=== PATIENT | female | born 1985 | race Caucasian/White ===

== ENCOUNTER 2020-06-08 02:30 | Inpatient (IN) | payer OTHER ==
[2020-06-08] MEDS ORDERED: Lidocaine 1% 50 ML MDV INJECT PRN (02:35)
[2020-06-08] MEDS ORDERED: Sodium Chloride 0.9% 2.5 ML Syringe FLUSH PRN (02:35)
[2020-06-08] MEDS ORDERED: Sodium Chloride 0.9% 10 ML SDV IV PRN (02:35)
[2020-06-08] MEDS ORDERED: Carboprost Tromethamine 250 MCG/1 ML Amp IM PRN (02:35)
[2020-06-08] MEDS ORDERED: Nalbuphine 10 MG/1 ML Vial IVPUSH PRN (02:35)
[2020-06-08] MEDS ORDERED: Butorphanol 1 MG/ML SDV IVPUSH PRN (02:35)
[2020-06-08] MEDS ORDERED: Misoprostol 200 MCG Tab PO PRN (02:35)
[2020-06-08] MEDS ORDERED: Water For Irrigation,Sterile 1,000 ML Container IRR PRN (02:35)
[2020-06-08] MEDS ORDERED: Sodium Chloride 0.9% 10 ML Syringe FLUSH PRN (02:35)
[2020-06-08] MEDS ORDERED: Methylergonovine 0.2 MG/1 ML Amp IM PRN (02:35)
[2020-06-08] MEDS ORDERED: Tranexamic Acid 1,000 MG in Sodium Chloride 0.9% 100 ML IV PRN (02:35)
[2020-06-08] MEDS ORDERED: Oxytocin/0.9 % Sodium Chloride 30 UNIT/500 ML BAG IV SCH (02:45)
[2020-06-08] MEDS: Lactated Ringers 1,000 ML IV SCH ×4 (03:17→06:34)
[2020-06-08] MEDS ORDERED: fentaNYL 100 MCG/2 ML SDV ONE (03:44)
[2020-06-08] MEDS ORDERED: Ropivacaine HCl/PF 100 ML ONE (03:45)
--- NOTE | 2020-06-08 04:14 | PCM.PREANE ---
Preanesthetic Assessment - Anesthesia/Transfusion/Family Hx Anesthesia History: Prior Anesthesia Without Reaction Family History of Anesthesia Reaction: No - Physical Assessment NPO Status Date: 06/08/20 NPO Status Time: 23:00 Height: 1.68 m Weight: 93.894 kg ASA Class: 2 - Lab Values: Laboratory Last Values WBC 13.93 K/uL (4.0-11.0) H 06/08/20 02:50 RBC 4.63 M/uL (4.30-5.90) 06/08/20 02:50 Hgb 12.3 g/dL (12.0-16.0) 06/08/20 02:50 Hct 37.8 % (36.0-46.0) 06/08/20 02:50 MCV 81.6 fL (80.0-98.0) 06/08/20 02:50 MCH 26.6 pg (27.0-32.0) L 06/08/20 02:50 MCHC 32.5 g/dL (31.0-37.0) 06/08/20 02:50 RDW Std Deviation 42.5 fl (28.0-62.0) 06/08/20 02:50 RDW Coeff of Talia 14 % (11.0-15.0) 06/08/20 02:50 Plt Count 315 K/uL (150-400) 06/08/20 02:50 MPV 9.20 fL (7.40-12.00) 06/08/20 02:50 Nucleated RBC % 0.0 /100WBC 06/08/20 02:50 Nucleated RBCs # 0 K/uL 06/08/20 02:50 - Allergies Allergies/Adverse Reactions: Allergies Allergy/AdvReac Type Severity Reaction Status Date / Time No Known Allergies Allergy Verified 06/08/20 02:33 - Acknowledgements Anesthesia Type Planned: Epidural Pt an Appropriate Candidate for the Planned Anesthesia: Yes Alternatives and Risks of Anesthesia Discussed w Pt/Guardian: Yes Pt/Guardian Understands and Agrees with Anesthesia Plan: Yes PreAnesthesia Questionnaire - Past Health History Medical/Surgical History: Denies Medical/Surgical History HEENT History: Reports: Impaired Vision Other HEENT History: wears glasses Cardiovascular History: Reports: None Respiratory History: Reports: None Gastrointestinal History: Reports: None Genitourinary History: Reports: None 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: Musculoskeletal History: Reports: Fracture Other Musculoskeletal History: right ankle Neurological History: Reports: None Psychiatric History: Reports: None Endocrine/Metabolic History: Reports: None Hematologic History: Reports: None Immunologic History: Reports: None Oncologic (Cancer) History: Reports: None Dermatologic History: Reports: None - Past Surgical History Head Surgeries/Procedures: Reports: None HEENT Surgical History: Reports: None Respiratory Surgical History: Reports: None GI Surgical History: Reports: None Female Surgical History: Reports: None Endocrine Surgical History: Reports: None Neurological Surgical History: Reports: None Musculoskeletal Surgical History: Reports: None - HOME MEDS Home Medications: Home Meds Mv,Calcium,Min/Iron/Folic/Vitk [Multi For Her Tablet] 1 tab PO DAILY 12/25/15 [History] - CURRENT (IN HOUSE) MEDS Current Meds: Current Medications Butorphanol Tartrate (Stadol) 1 mg IVPUSH Q1H PRN PRN Reason: Pain Carboprost Tromethamine (Hemabate Ds) 250 mcg IM ASDIRECTED PRN PRN Reason: Post Hemorrhage Oxytocin/Sodium Chloride (Oxytocin 30 Unit/500 Ml-Ns) 30 unit in 500 mls @ 500 mls/hr IV TITRATE [facility] Tranexamic Acid 1,000 mg/ (Sodium Chloride) 110 mls @ 660 mls/hr IV ONETIME PRN PRN Reason: Bleeding Lactated Ringer's (Ringers, Lactated) 1,000 mls @ 150 mls/hr IV ASDIRECTED [facility]LE[facility] Last Admin: 06/08/20 04:12 Dose: 999 mls/hr Documented by: Lidocaine HCl (Xylocaine 1%) 50 ml INJECT ONETIME PRN PRN Reason: Laceration repair Methylergonovine Maleate (Methergine) 0.2 mg IM ASDIRECTED PRN PRN Reason: Post Hemorrhage Misoprostol (Cytotec) 200 mcg PO ONETIME PRN PRN Reason: Post Hemorrhage Nalbuphine HCl (Nubain) 10 mg IVPUSH Q1H PRN PRN Reason: Pain (severe 7-10) Sodium Chloride (Saline Flush) 10 ml FLUSH ASDIRECTED PRN PRN Reason: Keep Vein Open Sodium Chloride (Saline Flush) 2.5 ml FLUSH ASDIRECTED PRN PRN Reason: Keep Vein Open Sodium Chloride (Normal Saline) 10 ml IV ASDIRECTED PRN PRN Reason: IV Use Sterile Water (Sterile Water For Irrigation) 1,000 ml IRR ASDIRECTED PRN PRN Reason: delivery Discontinued Medications Fentanyl (Sublimaze) Confirm Administered Dose 100 mcg .ROUTE .STK-MED ONE Stop: 06/08/20 03:45 Ropivacaine (Naropin 0.2%) Confirm Administered Dose 100 mls @ as directed .ROUTE .STAnsira-MED ONE Stop: 06/08/20 03:46
--- NOTE | 2020-06-08 04:18 | PCM.PRNOTE ---
- Free Text/Narrative Note: Anes Note Patietn requests epidural for L&D. Sitting position. Level L3-L4 midline approach. Sterile technique. Chloraprep scrub to lumbar area. Sterile fenestrated drape applied. Epidural space easily achieved single attempt using MATTHEW technique. MATHTEW at 3 cm. Cath threaded 5 cm with ease. Cath secued a t 10 cm at skin using sterile clear adhesive dressing. Tenisha well. Test 0400 3 cc 1.5% lido with epi negative. 0403 LOad 10 cc 0.2% ropivicaine with 1 mcg cc fentayl in slow divided doses. 0408 Pump started with 90 cc same solution. Rate is 8 cc hr with 6 cc q 20 min prn bolus. Tenisha well. Time with patient [id number] Laureano Alvarado DIRECTOR RECREATION
--- NOTE | 2020-06-08 10:45 | PCM.DEL ---
L & D Note - General Info Date of Service: 06/08/20 Mother's Due Date: 06/03/20 - Delivery Note Labor: Spontaneous Delivery Outcome: Livebirth Infant Delivery Method: Spontaneous Vaginal Delivery-Single Delivery Mode: Spontaneous Presentation: Right Occiput Anterior (KAREL) Nuchal Cord: Present Anesthesia Type: Epidural Amniotic Fluid Description: Clear Episiotomy Type: None Laceration: 1st Degree Suture type: Vicryl Suture size: 3-0 Placenta: Intact, Spontaneous Cord: 3 Vessels Estimated Blood Loss: 200 Resuscitation Needed: No [place]: Suctioned, Bulb Syringe Provider: Malena Hughes Score 1 min: 8 Score 5 min: 9 Second Stage Interventions: Reports: Pushing Effectively, Pushing, Knee Chest Position Delivery Comments (Free Text/Narrative):: 35 y.o. now presented this morning at about 3:00 AM to L&D at 40w5d with symptoms of labor. Baby tolerated labor well, mom eventually got epidural and delivered a live female at 10:20 AM on 06/08/2020. - General Info Date of Service: 06/08/20 Functional Status: Reports: Pain Controlled - Patient Data Weight - Most Recent: 93.894 kg Lab Results Last 24 Hours: Laboratory Results - last 24 hr 06/08/20 06/08/20 06/08/20 Range/Units 02:50 03:40 05:06 WBC 13.93 H (4.0-11.0) K/uL RBC 4.63 (4.30-5.90) M/uL Hgb 12.3 (12.0-16.0) g/dL Hct 37.8 (36.0-46.0) % MCV 81.6 (80.0-98.0) fL MCH 26.6 L (27.0-32.0) pg MCHC 32.5 (31.0-37.0) g/dL RDW Std Deviation 42.5 (28.0-62.0) fl RDW Coeff of Talia 14 (11.0-15.0) % Plt Count 315 (150-400) K/uL MPV 9.20 (7.40-12.00) fL Nucleated RBC % 0.0 /100WBC Nucleated RBCs # 0 K/uL POC Glucose 98 (60-110) mg/dL Blood Type A POSITIVE Antibody Screen NEGATIVE Med Orders - Current: Current Medications Butorphanol Tartrate (Stadol) 1 mg IVPUSH Q1H PRN PRN Reason: Pain Carboprost Tromethamine (Hemabate Ds) 250 mcg IM ASDIRECTED PRN PRN Reason: Post Hemorrhage Oxytocin/Sodium Chloride (Oxytocin 30 Unit/500 Ml-Ns) 30 unit in 500 mls @ 500 mls/hr IV TITRATE [facility] Tranexamic Acid 1,000 mg/ (Sodium Chloride) 110 mls @ 660 mls/hr IV ONETIME PRN PRN Reason: Bleeding Lactated Ringer's (Ringers, Lactated) 1,000 mls @ 150 mls/hr IV ASDIRECTED ALEXX Last Admin: 06/08/20 06:34 Dose: 150 mls/hr Documented by: Lidocaine HCl (Xylocaine 1%) 50 ml INJECT ONETIME PRN PRN Reason: Laceration repair Methylergonovine Maleate (Methergine) 0.2 mg IM ASDIRECTED PRN PRN Reason: Post Hemorrhage Misoprostol (Cytotec) 200 mcg PO ONETIME PRN PRN Reason: Post Hemorrhage Nalbuphine HCl (Nubain) 10 mg IVPUSH Q1H PRN PRN Reason: Pain (severe 7-10) Sodium Chloride (Saline Flush) 10 ml FLUSH ASDIRECTED PRN PRN Reason: Keep Vein Open Sodium Chloride (Saline Flush) 2.5 ml FLUSH ASDIRECTED PRN PRN Reason: Keep Vein Open Sodium Chloride (Normal Saline) 10 ml IV ASDIRECTED PRN PRN Reason: IV Use Sterile Water (Sterile Water For Irrigation) 1,000 ml IRR ASDIRECTED PRN PRN Reason: delivery Discontinued Medications Fentanyl (Sublimaze) Confirm Administered Dose 100 mcg .ROUTE .STK-MED ONE Stop: 06/08/20 03:45 Ropivacaine (Naropin 0.2%) Confirm Administered Dose 100 mls @ as directed .ROUTE .STK-MED ONE Stop: 06/08/20 03:46 - Problem List Review Problem List Initiated/Reviewed/Updated: Yes
[2020-06-08] MEDS ORDERED: Ibuprofen 400 MG Tab PO PRN (10:50)
[2020-06-08] MEDS ORDERED: Bisacodyl 10 MG Supp RECTAL PRN (10:50)
[2020-06-08] MEDS ORDERED: Acetaminophen 500 MG Tab PO PRN ×2 (10:50)
[2020-06-08] MEDS ORDERED: oxyCODONE 5 MG Tab PO PRN (10:50)
[2020-06-08] MEDS ORDERED: Witch Hazel Medicated Pads 40/Jar TOP PRN (10:50)
[2020-06-08] MEDS ORDERED: Lanolin 100% Cream 7 GM Tube TOP PRN (10:50)
[2020-06-08] MEDS ORDERED: Benzocaine/Menthol 20%-0.5% Spray 78 GM Cannister TOP PRN (10:50)
[2020-06-08] MEDS: Ibuprofen 800 MG Tab PO PRN ×2 (11:12→17:16)
[2020-06-08] MEDS: Docusate Sodium 100 MG Cap PO PRN ×2 (11:14→23:37)
--- NOTE | 2020-06-08 13:54 | OR ---
SURGEON: Malena Hughes M.D. DATE OF PROCEDURE: 06/08/2020 PREOPERATIVE DIAGNOSES: 1. A 41-week intrauterine . 2. Active labor. POSTOPERATIVE DIAGNOSES: 1. A 41-week intrauterine . 2. Active labor. PROCEDURE: Spontaneous vaginal delivery, first-degree vaginal laceration repaired. PRIMARY SURGEON: Malena Hughes MD INSTRUMENT TECH: Edilson Madrigal MS4. ANESTHESIA: Epidural. ESTIMATED BLOOD LOSS: 200 mL. COMPLICATIONS: None known. FINDINGS: Viable female. score of 8 at one minute, 9 at five minutes. Weight is pending. Spontaneous delivery, intact placenta, 3-vessel cord. DISPOSITION: Infant to nursery, mom in LDRP. 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 She was found to be 4 cm, 80% effaced, minus 2 station. Therefore, was admitted, routine labs were drawn, IV hydration was initiated. She is COVID negative. The patient was requesting regional anesthesia in the form of epidural, underwent this satisfactorily, became more comfortable. Continued to labor. She had spontaneous rupture of membranes, clear fluid was returned. Shortly after 7 a.m., she was found to be 6 to 7 cm. Within the next 2 hours, progressed to complete and feeling some pressure. I was called for delivery. Upon my arrival, the heart tones were category 1. The patient began pushing efforts, pushed readily. Over the next 3 to 4 contractions, was able to deliver 's head atraumatically spontaneously, followed by anterior shoulder, posterior shoulder, and remainder of the body without difficulty. A loose shoulder cord x1, was reduced manually. was handed off to her mother with attending nursing staff at her side. After a delay, cord was clamped x2 and cut. Cord arterial, cord venous, cord blood sampling was obtained. Light pressure was applied while the placenta was delivered spontaneously intact. Vigorous fundal uterine massage was then applied while 30 units of Pitocin was delivered in 500 mL of IV fluid. Upon inspection of cervix, vaginal sidewall, and perineum, these were found to be intact other than a first-degree left-sided vaginal laceration. This was repaired using 3-0 Vicryl in the usual fashion. Hemostasis remained evident. Sponge, instrument, and needle count was correct. The patient remained in LDRP, in nursery. GEOVANNI / ISABELA /[id number] MTDD
[2020-06-09] MEDS: Ibuprofen 800 MG Tab PO PRN (05:05)
--- NOTE | 2020-06-09 06:30 | PCM48HPAN ---
Post Anesthesia Note - EVALUATION WITHIN 48HRS OF ANESTHETIC Vital Signs in Normal Range: Yes Patient Participated in Evaluation: Yes Respiratory Function Stable: Yes Airway Patent: Yes Cardiovascular Function Stable: Yes Hydration Status Stable: Yes Pain Control Satisfactory: Yes Nausea and Vomiting Control Satisfactory: Yes Mental Status Recovered: Yes Vital Signs: Last Vital Signs Temp 36.6 C 06/08/20 19:35 Pulse 79 06/08/20 19:35 Resp 16 06/08/20 19:35 BP 117/58 L 06/08/20 19:35 Pulse Ox 97 06/08/20 19:35
--- NOTE | 2020-06-09 06:55 | PCM.PNPP ---
<Edilson Madrigal - Last Filed: 06/09/20 06:50> - General Info Date of Service: 06/09/20 Admission Dx/Problem (Free Text): Patient, 35 y.o. , presented to L&D in active labor at 40w5d Functional Status: Reports: Pain Controlled, Tolerating Diet, Ambulating, Uri nating - Review of Systems General: Reports: No Symptoms HEENT: Reports: No Symptoms Pulmonary: Reports: No Symptoms Cardiovascular: Reports: No Symptoms Gastrointestinal: Reports: No Symptoms Genitourinary: Reports: No Symptoms Musculoskeletal: Reports: No Symptoms Skin: Reports: No Symptoms Neurological: Reports: No Symptoms Psychiatric: Reports: No Symptoms - General Info Date of Service: 06/09/20 - Patient Data Vital Signs - Most Recent: Last Vital Signs Temp 36.6 C 06/08/20 19:35 Pulse 79 06/08/20 19:35 Resp 16 06/08/20 19:35 BP 117/58 L 06/08/20 19:35 Pulse Ox 97 06/08/20 19:35 Weight - Most Recent: 93.894 kg Lab Results - Last 24 Hours: Laboratory Results - last 24 hr 06/08/20 06/08/20 06/09/20 Range/Units 10:22 10:22 05:40 Hgb 9.4 L (12.0-16.0) g/dL Hct 29.3 L (36.0-46.0) % Cord ABG pH 7.217 (7.18-7.38) Cord ABG Base Excess -4 (-10--2) Cord VBG pH 7.459 H (7.25-7.45) Cord VBG Base Excess -3 (-10--2) Med Orders - Current: Current Medications Acetaminophen (Tylenol Extra Strength) 500 mg PO Q4H PRN PRN Reason: Pain Acetaminophen (Tylenol Extra Strength) 1,000 mg PO Q4H PRN PRN Reason: Pain Last Admin: 06/08/20 20:01 Dose: 1,000 mg Documented by: Benzocaine/Menthol (Dermoplast Pain Relief 20%-0.5% [place]) 78 gm TOP ASDIRECTED PRN PRN Reason: Perineal Comfort Measure Last Admin: 06/08/20 11:14 Dose: 1 canister Documented by: Bisacodyl (Dulcolax) 10 mg RECTAL ONETIME PRN PRN Reason: Constipation Carboprost Tromethamine (Hemabate Ds) 250 mcg IM ASDIRECTED PRN PRN Reason: Post Hemorrhage Docusate Sodium (Colace) 100 mg PO BID PRN PRN Reason: Constipation Last Admin: 06/08/20 23:37 Dose: 100 mg Documented by: Emollient Ointment (Lansinoh Hpa) 0 gm TOP ASDIRECTED PRN PRN Reason: Sore Nipples Oxytocin/Sodium Chloride (Oxytocin 30 Unit/500 Ml-Ns) 30 unit in 500 mls @ 500 mls/hr IV TITRATE [facility] Last Admin: 06/08/20 10:25 Dose: 500 mls/hr Documented by: Tranexamic Acid 1,000 mg/ (Sodium Chloride) 110 mls @ 660 mls/hr IV ONETIME PRN PRN Reason: Bleeding Lactated Ringer's (Ringers, Lactated) 1,000 mls @ 150 mls/hr IV ASDIRECTED [facility] Last Admin: 06/08/20 06:34 Dose: 150 mls/hr Documented by: Ibuprofen (Motrin) 400 mg PO Q4H PRN PRN Reason: Pain Ibuprofen (Motrin) 800 mg PO Q6H PRN PRN Reason: Pain Last Admin: 06/09/20 05:05 Dose: 800 mg Documented by: Methylergonovine Maleate (Methergine) 0.2 mg IM ASDIRECTED PRN PRN Reason: Post Hemorrhage Nalbuphine HCl (Nubain) 10 mg IVPUSH Q1H PRN PRN Reason: Pain (severe 7-10) Oxycodone HCl (Oxycodone) 5 mg PO Q2H PRN PRN Reason: Pain Sodium Chloride (Saline Flush) 10 ml FLUSH ASDIRECTED PRN PRN Reason: Keep Vein Open Sodium Chloride (Saline Flush) 2.5 ml FLUSH ASDIRECTED PRN PRN Reason: Keep Vein Open Sodium Chloride (Normal Saline) 10 ml IV ASDIRECTED PRN PRN Reason: IV Use Sterile Water (Sterile Water For Irrigation) 1,000 ml IRR ASDIRECTED PRN PRN Reason: delivery Witch Comfort (Tucks) 1 pad TOP ASDIRECTED PRN PRN Reason: comfort care Last Admin: 06/08/20 11:12 Dose: 1 tub Documented by: Discontinued Medications Butorphanol Tartrate (Stadol) 1 mg IVPUSH Q1H PRN PRN Reason: Pain Fentanyl (Sublimaze) Confirm Administered Dose 100 mcg .ROUTE .STK-MED ONE Stop: 06/08/20 03:45 Ropivacaine (Naropin 0.2%) Confirm Administered Dose 100 mls @ as directed .ROUTE .STK-MED ONE Stop: 06/08/20 03:46 Lidocaine HCl (Xylocaine 1%) 50 ml INJECT ONETIME PRN PRN Reason: Laceration repair Misoprostol (Cytotec) 200 mcg PO ONETIME PRN PRN Reason: Post Hemorrhage - Interaction Disposition, : in Room with Family Interaction: Holding Infant Feeding: Breastfed Infant; Nursed Well Support Person: - Recovery Exam Fundal Tone: Firm Fundal Level: 1 Fingerbreadths Below Umbilicus Fundal Placement: Midline Lochia Amount: Small Lochia Color: Brownish Perineum Description: Other (see below) (First degree laceration repaired, perineum intact) Other Perinuem Description: First degree Episiotomy/Laceration: None Bladder Status: Voiding Urinary Elimination: Voided - Exam General: Alert, Oriented, Cooperative, No Acute Distress HEENT: Pupils Equal, Pupils Reactive, EOMI, Mucous Membr. Moist/[place] Neck: Supple, Trachea Midline, No JVD, No Thyromegaly Lungs: Clear to Auscultation, Normal Respiratory Effort Cardiovascular: Regular Rate, Regular Rhythm, No Murmurs GI/Abdominal Exam: Normal Bowel Sounds, Soft, Non-Tender, No Organomegaly, No Distention, No Abnormal Bruit, No Mass Extremities: Normal Inspection, Non-Tender, No Pedal Edema, Normal Capillary Refill Skin: Warm, Intact, Moist Neurological: No New Focal Deficit Psy/Mental Status: Alert, Normal Affect, Normal Mood - Problem List Review Problem List Initiated/Reviewed/Updated: Yes - Assessment Assessment:: 35 y.o. now presented at 40w5d in active labor. Baby tolerated labor well, got epidural. Progressed without complications to spontaneous ROM, then delivery of a live female () at 10:20 AM on 06/08/2020. Placenta was intact with 3V cord. - Plan Plan:: -Continue routine PP cares -Prepare for D/C to home today if baby and mom continue to do well. <Malena Hughes - Last Filed: 06/09/20 11:19> - Patient Data Vital Signs - Most Recent: Last Vital Signs Temp 36.3 C 06/09/20 07:13 Pulse 64 06/09/20 07:13 Resp 14 06/09/20 07:13 BP 106/65 06/09/20 07:13 Pulse Ox 97 06/09/20 07:13 Lab Results - Last 24 Hours: Laboratory Results - last 24 hr 06/08/20 06/08/20 06/09/20 Range/Units 10:22 10:22 05:40 Hgb 9.4 L (12.0-16.0) g/dL Hct 29.3 L (36.0-46.0) % Cord ABG pH 7.217 (7.18-7.38) Cord ABG Base Excess -4 (-10--2) Cord VBG pH 7.459 H (7.25-7.45) Cord VBG Base Excess -3 (-10--2) Med Orders - Current: Current Medications Acetaminophen (Tylenol Extra Strength) 500 mg PO Q4H PRN PRN Reason: Pain Acetaminophen (Tylenol Extra Strength) 1,000 mg PO Q4H PRN PRN Reason: Pain Last Admin: 06/08/20 20:01 Dose: 1,000 mg Documented by: Benzocaine/Menthol (Dermoplast Pain Relief 20%-0.5% [place]) 78 gm TOP ASDIRECTED PRN PRN Reason: Perineal Comfort Measure Last Admin: 06/08/20 11:14 Dose: 1 canister Documented by: Bisacodyl (Dulcolax) 10 mg RECTAL ONETIME PRN PRN Reason: Constipation Carboprost Tromethamine (Hemabate Ds) 250 mcg IM ASDIRECTED PRN PRN Reason: Post Hemorrhage Docusate Sodium (Colace) 100 mg PO BID PRN PRN Reason: Constipation Last Admin: 06/09/20 08:59 Dose: 100 mg Documented by: Emollient Ointment (Lansinoh Hpa) 0 gm TOP ASDIRECTED PRN PRN Reason: Sore Nipples Oxytocin/Sodium Chloride (Oxytocin 30 Unit/500 Ml-Ns) 30 unit in 500 mls @ 500 mls/hr IV TITRATE [facility] Last Admin: 06/08/20 10:25 Dose: 500 mls/hr Documented by: Tranexamic Acid 1,000 mg/ (Sodium Chloride) 110 mls @ 660 mls/hr IV ONETIME PRN PRN Reason: Bleeding Lactated Ringer's (Ringers, Lactated) 1,000 mls @ 150 mls/hr IV ASDIRECTED [facility] Last Admin: 06/08/20 06:34 Dose: 150 mls/hr Documented by: Ibuprofen (Motrin) 400 mg PO Q4H PRN PRN Reason: Pain Ibuprofen (Motrin) 800 mg PO Q6H PRN PRN Reason: Pain Last Admin: 06/09/20 05:05 Dose: 800 mg Documented by: Methylergonovine Maleate (Methergine) 0.2 mg IM ASDIRECTED PRN PRN Reason: Post Hemorrhage Nalbuphine HCl (Nubain) 10 mg IVPUSH Q1H PRN PRN Reason: Pain (severe 7-10) Oxycodone HCl (Oxycodone) 5 mg PO Q2H PRN PRN Reason: Pain Sodium Chloride (Saline Flush) 10 ml FLUSH ASDIRECTED PRN PRN Reason: Keep Vein Open Sodium Chloride (Saline Flush) 2.5 ml FLUSH ASDIRECTED PRN PRN Reason: Keep Vein Open Sodium Chloride (Normal Saline) 10 ml IV ASDIRECTED PRN PRN Reason: IV Use Sterile Water (Sterile Water For Irrigation) 1,000 ml IRR ASDIRECTED PRN PRN Reason: delivery Witch Comfort (Tucks) 1 pad TOP ASDIRECTED PRN PRN Reason: comfort care Last Admin: 06/08/20 11:12 Dose: 1 tub Documented by: Discontinued Medications Butorphanol Tartrate (Stadol) 1 mg IVPUSH Q1H PRN PRN Reason: Pain Fentanyl (Sublimaze) Confirm Administered Dose 100 mcg .ROUTE .STK-MED ONE Stop: 06/08/20 03:45 Ropivacaine (Naropin 0.2%) Confirm Administered Dose 100 mls @ as directed .ROUTE .STK-MED ONE Stop: 06/08/20 03:46 Lidocaine HCl (Xylocaine 1%) 50 ml INJECT ONETIME PRN PRN Reason: Laceration repair Misoprostol (Cytotec) 200 mcg PO ONETIME PRN PRN Reason: Post Hemorrhage - My Orders Last 24 Hours: My Active Orders 06/08/20 10:50 Patient Status [ADT] Routine Up ad Maien [RC] ASDIRECTED Acetaminophen [Tylenol Extra Strength] 1,000 mg PO Q4H PRN Acetaminophen [Tylenol Extra Strength] 500 mg PO Q4H PRN Benzocaine/Menthol [Dermoplast Pain Relief 20%-0.5% [place]] 78 gm TOP ASDIRECTED PRN Docusate Sodium [Colace] 100 mg PO BID PRN Ibuprofen [Motrin] 400 mg PO Q4H PRN Ibuprofen [Motrin] 800 mg PO Q6H PRN Lanolin [Lansinoh HPA] See Dose Instructions TOP ASDIRECTED PRN bisacodyL [Dulcolax] 10 mg RECTAL ONETIME PRN oxyCODONE 5 mg PO Q2H PRN witch Comfort [Tucks] 1 pad TOP ASDIRECTED PRN Assess Lochia [WOMSER] Per Unit Routine Assess Uterine Involution [WOMSER] Per Unit Routine Peripheral IV Discontinue [OM.PC] Routine - Plan Plan:: Patient seen and examined--discharge to home today. Follow up at [facility] 4 weeks. DIscharge instructions reviewed.
[2020-06-09 07:13] VITALS: BP 106/65; PULSE 64
[2020-06-09] MEDS: Docusate Sodium 100 MG Cap PO PRN (08:59)
== END 2020-06-09 14:00 | disposition home or self-care (01) | DRG 807 ==
LOC: MW.OBCHECK 02:30 → MW.OB 02:32 → MW.OBCHECK 02:39 → OBSVTOIN 10:22 → MW.OB 14:11
PROVIDERS: ADMIT Obstetrics & Gynecology; ATTEND Obstetrics & Gynecology
PROC: 10E0XZZ Delivery of Products of Conception, External Approach (ICD-10-PCS; principal; 2020-06-08)
PROC: 0HQ9XZZ Repair Perineum Skin, External Approach (ICD-10-PCS; 2020-06-08)
PROC: 10907ZC Drainage of Amniotic Fluid, Therapeutic from Products of Conception, Via Natural or Artificial Opening (ICD-10-PCS; 2020-06-08)
PROC: 3E0R3BZ Introduction of Anesthetic Agent into Spinal Canal, Percutaneous Approach (ICD-10-PCS; 2020-06-08)
PROC: 00HU33Z Insertion of Infusion Device into Spinal Canal, Percutaneous Approach (ICD-10-PCS; 2020-06-08)
DX: O48.0 Post-term pregnancy (principal); Z37.0 Single live birth; Z3A.40 40 weeks gestation of pregnancy; O69.81X0 Labor and delivery complicated by cord around neck, without compression, not applicable or unspecified; O70.0 First degree perineal laceration during delivery
CPT/HCPCS: 01967; 36415; 51702; 59025; 59409; 82803; 82962; 85014; 85018; 85027; 86592; 86850; 86900; 86901; A9270-GY; J2590; J2795; J3010; J7120